=== PATIENT | male | born 1965 | race African-American/Black ===

== ENCOUNTER 2021-03-10 10:19 | Inpatient (IN) | payer MEDICAID, OTHER ==
[~2021-03-10] VITALS: Ht 167.6 cm; Wt 61.0 kg
[2021-03-10] MEDS ORDERED: CLINDAMYCIN 600MG IV 50 ML IV ONE (10:45)
[2021-03-10] MEDS ORDERED: SODIUM CHLORIDE 0.9% 500 ML IV ONE (10:45)
[2021-03-10] MEDS ORDERED: MORPHINE SULFATE 4 MG/ML SYR/VIAL IV ONE (10:45)
[2021-03-10] MEDS ORDERED: ONDANSETRON HCL 4 MG/2 ML VIAL IV ONE (10:45)
[2021-03-10 11:06] LABS: Hemoglobin 13.7 g/dL (13.5-17.5); Mean Corpuscular Volume 89.4 fL (80.0-100.0)
[2021-03-10 11:07] LABS: Hematocrit 38.8 % (41.0-53.0); Mean Corpuscular Hemoglobin 31.7 pg (28.0-32.0); Mean Corpuscular Hgb Conc. 35.4 g/dL (32.0-36.0); Red Blood Cells 4.34 10^6/uL (4.5-5.90); Red Cell Distribution Width 12.7 % (11.8-14.3); White Blood Cell 15.5 10^3/uL (4.4-10.8)
[2021-03-10 11:16] LABS: Basophils % (manual) 0 (0.0-2.0); Blast Cells 0; Eosinophils % (manual) 0 (0-7); Metamyelocytes % 0; Myelocytes % 0; Promyelocytes % 0; Reactive Lymphocytes 0
[2021-03-10 11:19] LABS: INR 0.96 (0.9-1.15); Partial Thromboplastin Time 25.1 sec (23.6-33.0)
[2021-03-10 11:20] LABS: Potassium 3.9 mmol/L (3.5-5.1)
[2021-03-10 11:26] LABS: Albumin 2.6 g/dL (3.4-5.0); Bilirubin, Total 0.5 mg/dL (0.2-1.0); Magnesium 2.1 mg/dL (1.6-2.6); Total Protein 7.8 g/dL (6.4-8.2)
[2021-03-10 11:44] LABS: Band Neutrophils % (manual) 8; Lymphocytes % (manual) 12 (10.0-50.0); Monocytes % (manual) 5 (0-12)
[2021-03-10] MEDS ORDERED: VANCOMYCIN PER PHARMACY 0 MG IV SCH (16:00)
[2021-03-10] MEDS ORDERED: NITROGLYCERIN 0.4 MG SL TAB SL PRN (16:00)
[2021-03-10] MEDS ORDERED: ACETAMINOPHEN 500 MG TAB PO PRN (16:00)
[2021-03-10] MEDS ORDERED: MORPHINE SULFATE INJECTION 2 MG/ML SYRG IV PRN (16:00)
[2021-03-10] MEDS ORDERED: DEXTROSE (50%) 50ML SYRG IV PRN (16:00)
[2021-03-10] MEDS: SODIUM CHLORIDE 0.9% 1,000 ML IV SCH (16:39)
[2021-03-10] MEDS: InsuLIN REG 1unit/0.01ml Soln (100units/ml) SC SCH (17:00)
[2021-03-10] MEDS: ACCU-CHEK COMFORT CURVE STRIP VI SCH (17:43)
[2021-03-10] MEDS: VANCOMYCIN 1GM/250ML 250 ML IV SCH (17:48)
[2021-03-11] MEDS: metroNIDAZOLE 500MG/100ML 100 ML IV SCH ×4 (02:01→21:34)
[2021-03-11] MEDS: ACCU-CHEK COMFORT CURVE STRIP VI SCH ×5 (03:33→22:05)
[2021-03-11] MEDS: InsuLIN REG 1unit/0.01ml Soln (100units/ml) SC SCH ×5 (03:34→21:33)
[2021-03-11 05:00] VITALS: BP 152/88
[2021-03-11 05:27] VITALS: BP 164/90
[2021-03-11 05:47] LABS: Albumin 2.2 g/dL (3.4-5.0); Calcium 8.1 mg/dL (8.5-10.1); INR 0.99 (0.9-1.15); Partial Thromboplastin Time 27.2 sec (23.6-33.0)
[2021-03-11 05:49] LABS: BUN/Creatinine Ratio 23.4
[2021-03-11 05:52] LABS: Bilirubin, Total 0.4 mg/dL (0.2-1.0); Total Protein 6.7 g/dL (6.4-8.2)
[2021-03-11] MEDS: VANCOMYCIN 1GM/250ML 250 ML IV SCH ×2 (06:17→17:30)
[2021-03-11] MEDS: SODIUM CHLORIDE 0.9% 1,000 ML IV SCH (06:18)
[2021-03-11 09:00] VITALS: BP 150/77
[2021-03-11] MEDS: cefTRIAXone 1GM/50ML D5W 50 ML IV SCH (09:01)
[2021-03-11] MEDS: LISINOPRIL 20 MG TAB PO SCH (12:29)
[2021-03-11] MEDS: MORPHINE SULFATE INJECTION 2 MG/ML SYRG IV PRN ×2 (12:30→20:38)
[2021-03-11 13:00] VITALS: BP 147/69
[2021-03-11 16:36] VITALS: BP 142/74
[2021-03-11] MEDS: INSULIN LANTUS (GLARGINE) 1 /0.01ml (100units/ml) SC SCH (21:33)
[2021-03-11 22:00] VITALS: BP 145/70
[2021-03-11] MEDS: CARVEDILOL 3.125 MG TAB PO SCH (22:05)
[2021-03-11] MEDS: ATORVASTATIN 20 MG TAB PO SCH (22:05)
[2021-03-11] MEDS ORDERED: ATOR40TA52 PO (22:25)
[2021-03-11] MEDS ORDERED: METF-370 PO (22:25)
[2021-03-11] MEDS ORDERED: ISOS1TAB28 PO (22:25)
[2021-03-12] MEDS: SODIUM CHLORIDE 0.9% 1,000 ML IV SCH ×3 (03:42→21:30)
[2021-03-12] MEDS: metroNIDAZOLE 500MG/100ML 100 ML IV SCH ×2 (05:03→14:00)
[2021-03-12 05:06] VITALS: BP 122/72
[2021-03-12 05:54] LABS: Eosinophils # (auto) 0 10 ^3/uL (0-0.8); Lymphocytes # (auto) 0.9 10 ^3/uL (0.4-5.4)
[2021-03-12 05:57] LABS: Basophils # (auto) 0.1 10 ^3/uL (0-0.2); Basophils % (auto) 0.3 % (0.0-2.0); Hematocrit 36.6 % (41.0-53.0); Hemoglobin 12.8 g/dL (13.5-17.5); Lymphocytes % (auto) 5.8 % (10.0-50.0); Mean Corpuscular Hgb Conc. 34.9 g/dL (32.0-36.0); Mean Corpuscular Volume 88.9 fL (80.0-100.0); Monocytes # (auto) 1.2 10 ^3/uL (0-1.3); Monocytes % (auto) 7.4 % (0.0-12.0); Neutrophils % (auto) 86.5 % (37.0-80.0); Red Blood Cells 4.12 10^6/uL (4.5-5.90); White Blood Cell 16.2 10^3/uL (4.4-10.8)
[2021-03-12 06:06] LABS: Potassium 3.6 mmol/L (3.5-5.1)
[2021-03-12 06:15] LABS: Albumin 2.1 g/dL (3.4-5.0); BUN/Creatinine Ratio 17.3; Bilirubin, Total 0.4 mg/dL (0.2-1.0); Calcium 8.5 mg/dL (8.5-10.1); Total Protein 6.6 g/dL (6.4-8.2)
[2021-03-12] MEDS: VANCOMYCIN 1GM/250ML 250 ML IV SCH (06:27)
[2021-03-12] MEDS: ACCU-CHEK COMFORT CURVE STRIP VI SCH ×4 (06:34→21:43)
[2021-03-12] MEDS: InsuLIN REG 1unit/0.01ml Soln (100units/ml) SC SCH ×4 (06:34→21:44)
[2021-03-12 08:57] VITALS: BP 148/85
[2021-03-12] MEDS: cefTRIAXone 1GM/50ML D5W 50 ML IV SCH (09:00)
[2021-03-12] MEDS: CARVEDILOL 3.125 MG TAB PO SCH ×2 (10:27→22:09)
[2021-03-12] MEDS: ASPirin 81 mg TAB PO SCH (10:27)
[2021-03-12] MEDS: LISINOPRIL 20 MG TAB PO SCH (10:27)
[2021-03-12 13:00] VITALS: BP 145/83
[2021-03-12] MEDS ORDERED: VANCOMYCIN 1GM/250ML 250 ML IV SCH (16:00)
[2021-03-12] MEDS: HYDROcodone-ACET 5/325MG TAB PO PRN (16:43)
[2021-03-12 17:00] VITALS: BP 145/47
[2021-03-12] MEDS ORDERED: CLINDAMYCIN 600MG IV 50 ML IV ONE ×2 (17:00→18:00)
[2021-03-12] MEDS: Glucerna Carbsteady SHAKE Vanilla 8oz PO SCH (18:09)
[2021-03-12] MEDS: MEROPENEM 1GM IVPB 100 ML IV SCH (20:15)
[2021-03-12] MEDS: INSULIN LANTUS (GLARGINE) 1 /0.01ml (100units/ml) SC SCH (21:43)
[2021-03-12 22:00] VITALS: BP 157/84
[2021-03-12] MEDS: ATORVASTATIN 20 MG TAB PO SCH (22:09)
[2021-03-12] MEDS: ONDANSETRON HCL 4 MG/2 ML VIAL IV PRN (23:35)
[2021-03-12] MEDS: hydrALAZINE HCL 20 MG/ML VL IV PRN (23:41)
[2021-03-13] MEDS: CLINDAMYCIN 600MG IV 50 ML IV SCH ×3 (00:09→16:00)
[2021-03-13] MEDS: HYDROcodone-ACET 5/325MG TAB PO PRN (01:26)
[2021-03-13] MEDS: MEROPENEM 1GM IVPB 100 ML IV SCH ×3 (04:32→20:01)
[2021-03-13 05:00] VITALS: BP 151/78
[2021-03-13 06:10] LABS: Anion Gap 7 (5-15); Calcium 7.8 mg/dL (8.5-10.1); Carbon Dioxide 28 mmol/L (21-32); Chloride 103 mmol/L (98-107); Glucose 122 mg/dL (74-106); Potassium 3.3 mmol/L (3.5-5.1); Sodium 138 mmol/L (136-145)
[2021-03-13 06:16] LABS: BUN/Creatinine Ratio 18.2; Blood Urea Nitrogen 12 mg/dL (7-18); GFR African American 161 mL/min; GFR Non-African American 133 mL/min
[2021-03-13 06:24] LABS: Basophils # (auto) 0 10 ^3/uL (0-0.2); Basophils % (auto) 0.2 % (0.0-2.0); Eosinophils # (auto) 0 10 ^3/uL (0-0.8); Hematocrit 36.9 % (41.0-53.0); Hemoglobin 13.3 g/dL (13.5-17.5); Lymphocytes # (auto) 1.1 10 ^3/uL (0.4-5.4); Lymphocytes % (auto) 4.8 % (10.0-50.0); Mean Corpuscular Hemoglobin 31.7 pg (28.0-32.0); Mean Corpuscular Hgb Conc. 36.1 g/dL (32.0-36.0); Mean Corpuscular Volume 87.9 fL (80.0-100.0); Monocytes # (auto) 1.4 10 ^3/uL (0-1.3); Monocytes % (auto) 6.5 % (0.0-12.0); Neutrophils # (auto) 19.5 10 ^3/uL (1.6-8.6); Neutrophils % (auto) 88.5 % (37.0-80.0); Red Blood Cells 4.19 10^6/uL (4.5-5.90); Red Cell Distribution Width 12.2 % (11.8-14.3)
[2021-03-13] MEDS: ACCU-CHEK COMFORT CURVE STRIP VI SCH ×4 (06:35→21:59)
[2021-03-13] MEDS: InsuLIN REG 1unit/0.01ml Soln (100units/ml) SC SCH ×4 (06:35→21:58)
[2021-03-13] MEDS: Glucerna Carbsteady SHAKE Vanilla 8oz PO SCH ×3 (08:00→18:08)
[2021-03-13 09:00] VITALS: BP 148/77
[2021-03-13] MEDS: ASPirin 81 mg TAB PO SCH (10:27)
[2021-03-13] MEDS: LISINOPRIL 20 MG TAB PO SCH (10:28)
[2021-03-13] MEDS: CARVEDILOL 3.125 MG TAB PO SCH ×2 (10:28→21:47)
[2021-03-13] MEDS: SODIUM CHLORIDE 0.9% 1,000 ML IV SCH (10:40)
[2021-03-13 12:45] VITALS: BP 147/77
[2021-03-13] MEDS ORDERED: POTASSIUM EFFERVESENT TAB 25 MEQ PO ONE (13:30)
[2021-03-13 17:16] VITALS: BP 153/80
[2021-03-13] MEDS: ATORVASTATIN 20 MG TAB PO SCH (21:47)
[2021-03-13] MEDS: INSULIN LANTUS (GLARGINE) 1 /0.01ml (100units/ml) SC SCH (21:58)
[2021-03-13] MEDS: MORPHINE SULFATE INJECTION 2 MG/ML SYRG IV PRN (21:59)
[2021-03-13 22:00] VITALS: BP 160/79
[2021-03-14] MEDS: CLINDAMYCIN 600MG IV 50 ML IV SCH ×4 (00:28→23:42)
[2021-03-14] MEDS: MEROPENEM 1GM IVPB 100 ML IV SCH ×3 (03:35→20:00)
[2021-03-14 05:00] VITALS: BP 149/84
[2021-03-14] MEDS: MORPHINE SULFATE INJECTION 2 MG/ML SYRG IV PRN ×3 (05:37→14:23)
[2021-03-14] MEDS: ONDANSETRON HCL 4 MG/2 ML VIAL IV PRN (05:37)
[2021-03-14] MEDS: SODIUM CHLORIDE 0.9% 1,000 ML IV SCH ×2 (05:37→14:20)
[2021-03-14] MEDS: InsuLIN REG 1unit/0.01ml Soln (100units/ml) SC SCH ×4 (05:46→22:07)
[2021-03-14] MEDS: ACCU-CHEK COMFORT CURVE STRIP VI SCH ×4 (05:46→22:06)
[2021-03-14 05:59] LABS: Hemoglobin 12.9 g/dL (13.5-17.5)
[2021-03-14 06:01] LABS: Basophils # (auto) 0.1 10 ^3/uL (0-0.2); Basophils % (auto) 0.4 % (0.0-2.0); Eosinophils # (auto) 0 10 ^3/uL (0-0.8); Eosinophils % (auto) 0.2 % (0.0-7.0); Hematocrit 37.2 % (41.0-53.0); Lymphocytes # (auto) 1.1 10 ^3/uL (0.4-5.4); Lymphocytes % (auto) 5.4 % (10.0-50.0); Mean Corpuscular Hemoglobin 30.8 pg (28.0-32.0); Mean Corpuscular Hgb Conc. 34.5 g/dL (32.0-36.0); Mean Corpuscular Volume 89.2 fL (80.0-100.0); Monocytes # (auto) 1.3 10 ^3/uL (0-1.3); Monocytes % (auto) 6.6 % (0.0-12.0); Neutrophils # (auto) 17.1 10 ^3/uL (1.6-8.6); Neutrophils % (auto) 87.4 % (37.0-80.0); Red Blood Cells 4.17 10^6/uL (4.5-5.90); Red Cell Distribution Width 12.6 % (11.8-14.3); White Blood Cell 19.6 10^3/uL (4.4-10.8)
[2021-03-14 06:25] LABS: Potassium 3.2 mmol/L (3.5-5.1)
[2021-03-14 06:34] LABS: Albumin 1.9 g/dL (3.4-5.0); BUN/Creatinine Ratio 17.7; Bilirubin, Total 0.2 mg/dL (0.2-1.0); Calcium 8.2 mg/dL (8.5-10.1); Total Protein 6.6 g/dL (6.4-8.2)
[2021-03-14] MEDS: Glucerna Carbsteady SHAKE Vanilla 8oz PO SCH ×3 (08:00→18:22)
[2021-03-14] MEDS ORDERED: ADENOSINE 50 MG in GIVE UN-DILUTED 0 ML IV ONE (08:15)
[2021-03-14 08:41] VITALS: BP 156/81
[2021-03-14 09:07] VITALS: BP 149/80
[2021-03-14] MEDS: ASPirin 81 mg TAB PO SCH (10:11)
[2021-03-14] MEDS: LISINOPRIL 20 MG TAB PO SCH (10:12)
[2021-03-14] MEDS: CARVEDILOL 3.125 MG TAB PO SCH ×2 (10:12→22:08)
[2021-03-14 13:00] VITALS: BP 162/90
[2021-03-14] MEDS ORDERED: POTASSIUM CHL 20 Meq TABLET PO ONE (13:00)
[2021-03-14] MEDS ORDERED: CHOLECALCIFEROL (VITD3) 2,000 UNIT CAP/TAB PO ONE (13:00)
[2021-03-14] MEDS: hydrALAZINE HCL 20 MG/ML VL IV PRN (15:21)
[2021-03-14 17:00] VITALS: BP 147/75
[2021-03-14] MEDS: HYDROmorphone HCL 2 MG/ML VL IV PRN ×2 (18:23→22:54)
[2021-03-14 22:00] VITALS: BP 158/71
[2021-03-14] MEDS: ATORVASTATIN 20 MG TAB PO SCH (22:06)
[2021-03-14] MEDS: INSULIN LANTUS (GLARGINE) 1 /0.01ml (100units/ml) SC SCH (22:07)
[2021-03-15] MEDS: MEROPENEM 1GM IVPB 100 ML IV SCH ×3 (03:45→19:19)
[2021-03-15] MEDS: HYDROmorphone HCL 2 MG/ML VL IV PRN ×6 (03:45→22:31)
[2021-03-15 05:00] VITALS: BP 126/69
[2021-03-15 05:38] LABS: Basophils # (auto) 0 10 ^3/uL (0-0.2); Basophils % (auto) 0.1 % (0.0-2.0); Eosinophils # (auto) 0 10 ^3/uL (0-0.8); Lymphocytes # (auto) 0.9 10 ^3/uL (0.4-5.4); Monocytes # (auto) 1.3 10 ^3/uL (0-1.3); Neutrophils % (auto) 85.7 % (37.0-80.0)
[2021-03-15] MEDS: SODIUM CHLORIDE 0.9% 1,000 ML IV SCH ×2 (05:40→11:59)
[2021-03-15 05:45] LABS: Eosinophils % (auto) 0.2 % (0.0-7.0); Hematocrit 33.2 % (41.0-53.0); Hemoglobin 11.7 g/dL (13.5-17.5); Lymphocytes % (auto) 5.9 % (10.0-50.0); Mean Corpuscular Hemoglobin 31.2 pg (28.0-32.0); Mean Corpuscular Hgb Conc. 35.1 g/dL (32.0-36.0); Mean Corpuscular Volume 88.8 fL (80.0-100.0); Monocytes % (auto) 8.1 % (0.0-12.0); Neutrophils # (auto) 13.3 10 ^3/uL (1.6-8.6); Red Blood Cells 3.74 10^6/uL (4.5-5.90); Red Cell Distribution Width 12.5 % (11.8-14.3); White Blood Cell 15.6 10^3/uL (4.4-10.8)
[2021-03-15] MEDS: ACCU-CHEK COMFORT CURVE STRIP VI SCH ×4 (05:46→21:58)
[2021-03-15] MEDS: InsuLIN REG 1unit/0.01ml Soln (100units/ml) SC SCH ×4 (05:46→21:58)
[2021-03-15 06:05] LABS: Potassium 3.8 mmol/L (3.5-5.1)
[2021-03-15] MEDS: Glucerna Carbsteady SHAKE Vanilla 8oz PO SCH ×3 (08:08→18:00)
[2021-03-15] MEDS: CLINDAMYCIN 600MG IV 50 ML IV SCH ×3 (08:08→23:44)
[2021-03-15 09:00] VITALS: BP 145/76
[2021-03-15] MEDS: ASPirin 81 mg TAB PO SCH (09:41)
[2021-03-15] MEDS: LISINOPRIL 20 MG TAB PO SCH (09:42)
[2021-03-15] MEDS: CHOLECALCIFEROL (VITD3) 2,000 UNIT CAP/TAB PO SCH (09:42)
[2021-03-15] MEDS: CARVEDILOL 3.125 MG TAB PO SCH ×2 (09:42→21:56)
[2021-03-15 13:00] VITALS: BP 143/75
[2021-03-15 17:00] VITALS: BP 143/70
[2021-03-15] MEDS: ATORVASTATIN 20 MG TAB PO SCH (21:57)
[2021-03-15] MEDS: INSULIN LANTUS (GLARGINE) 1 /0.01ml (100units/ml) SC SCH (21:58)
[2021-03-15 22:00] VITALS: BP 160/80
[2021-03-16] MEDS: ONDANSETRON HCL 4 MG/2 ML VIAL IV PRN (01:47)
[2021-03-16] MEDS: HYDROmorphone HCL 2 MG/ML VL IV PRN ×5 (01:47→21:46)
[2021-03-16] MEDS: HYDROcodone-ACET 5/325MG TAB PO PRN (02:50)
[2021-03-16] MEDS: MEROPENEM 1GM IVPB 100 ML IV SCH ×3 (04:19→21:01)
[2021-03-16 05:01] VITALS: BP 114/63
[2021-03-16] MEDS: InsuLIN REG 1unit/0.01ml Soln (100units/ml) SC SCH ×4 (06:05→21:31)
[2021-03-16] MEDS: ACCU-CHEK COMFORT CURVE STRIP VI SCH ×4 (06:05→21:45)
[2021-03-16 07:05] LABS: Basophils # (auto) 0.1 10 ^3/uL (0-0.2); Hemoglobin 13.1 g/dL (13.5-17.5); Neutrophils # (auto) 16.4 10 ^3/uL (1.6-8.6); Red Cell Distribution Width 12.6 % (11.8-14.3)
[2021-03-16 07:07] LABS: Basophils % (auto) 0.6 % (0.0-2.0); Eosinophils # (auto) 0 10 ^3/uL (0-0.8); Eosinophils % (auto) 0.2 % (0.0-7.0); Hematocrit 38.4 % (41.0-53.0); Lymphocytes # (auto) 1.4 10 ^3/uL (0.4-5.4); Lymphocytes % (auto) 7.3 % (10.0-50.0); Mean Corpuscular Hemoglobin 30.4 pg (28.0-32.0); Mean Corpuscular Volume 89.2 fL (80.0-100.0); Monocytes # (auto) 1.4 10 ^3/uL (0-1.3); Monocytes % (auto) 7.4 % (0.0-12.0); Neutrophils % (auto) 84.5 % (37.0-80.0); Red Blood Cells 4.31 10^6/uL (4.5-5.90); White Blood Cell 19.5 10^3/uL (4.4-10.8)
[2021-03-16 07:20] LABS: INR 1.01 (0.9-1.15); Partial Thromboplastin Time 29.1 sec (23.6-33.0)
[2021-03-16 08:00] VITALS: BP 150/88
[2021-03-16] MEDS: CLINDAMYCIN 600MG IV 50 ML IV SCH ×2 (08:00→16:33)
[2021-03-16] MEDS: Glucerna Carbsteady SHAKE Vanilla 8oz PO SCH ×3 (08:00→18:39)
[2021-03-16] MEDS: CHOLECALCIFEROL (VITD3) 2,000 UNIT CAP/TAB PO SCH (09:39)
[2021-03-16] MEDS: ASPirin 81 mg TAB PO SCH (09:39)
[2021-03-16] MEDS: LIDOCAINE 1% HCL (LOCAL ANESTH.) INJ 20ML MDV ONE ×2 (09:42→11:34)
[2021-03-16] MEDS: BUPIVACAINE 0.5% P/F INJ 10 ML VIAL ONE ×2 (09:43→11:34)
[2021-03-16] MEDS ORDERED: DAKINS HALF STR 0.25% (NaHypochlorite) 473 ML TOPICAL SOL TOP ONE (09:45)
[2021-03-16] MEDS: LISINOPRIL 20 MG TAB PO SCH (10:00)
[2021-03-16] MEDS: CARVEDILOL 3.125 MG TAB PO SCH ×2 (10:00→21:45)
[2021-03-16] MEDS ORDERED: CLINDAMYCIN 600MG IV 50 ML IV ONE (11:09)
[2021-03-16] MEDS ORDERED: fentaNYL CITRATE 100 MCG/2 ML VL ONE (11:22)
[2021-03-16] MEDS ORDERED: MIDAZOLAM HCL 2MG/2ML 2ml VIAL (1mg/ml) ONE (11:22)
[2021-03-16] MEDS ORDERED: ONDANSETRON HCL 4 MG/2 ML VIAL ONE (12:06)
[2021-03-16] MEDS ORDERED: PROPOFOL 10 MG/ML 20 ML IV ONE (12:07)
[2021-03-16] MEDS ORDERED: ONDANSETRON HCL 4 MG/2 ML VIAL IV PRN (12:30)
[2021-03-16] MEDS ORDERED: HYDROmorphone HCL 2 MG/ML VL IV PRN (12:30)
[2021-03-16 16:00] VITALS: BP 168/81
[2021-03-16] MEDS: hydrALAZINE HCL 20 MG/ML VL IV PRN (16:09)
[2021-03-16] MEDS: SODIUM CHLORIDE 0.9% 1,000 ML IV SCH (16:33)
[2021-03-16] MEDS: INSULIN LANTUS (GLARGINE) 1 /0.01ml (100units/ml) SC SCH (21:32)
[2021-03-16] MEDS: ATORVASTATIN 20 MG TAB PO SCH (21:45)
[2021-03-16 22:00] VITALS: BP 141/75
[2021-03-17] MEDS: CLINDAMYCIN 600MG IV 50 ML IV SCH ×3 (00:21→10:34)
[2021-03-17] MEDS: HYDROcodone-ACET 5/325MG TAB PO PRN ×3 (00:26→15:40)
[2021-03-17] MEDS: MEROPENEM 1GM IVPB 100 ML IV SCH ×3 (03:45→19:56)
[2021-03-17 05:00] VITALS: BP 128/67
[2021-03-17] MEDS: InsuLIN REG 1unit/0.01ml Soln (100units/ml) SC SCH ×4 (06:34→22:01)
[2021-03-17] MEDS: ACCU-CHEK COMFORT CURVE STRIP VI SCH ×4 (06:35→22:01)
[2021-03-17 07:17] LABS: Hematocrit 37.2 % (41.0-53.0); Hemoglobin 12.6 g/dL (13.5-17.5); Mean Corpuscular Hemoglobin 30.4 pg (28.0-32.0); Mean Corpuscular Volume 89.3 fL (80.0-100.0); Red Blood Cells 4.16 10^6/uL (4.5-5.90); Red Cell Distribution Width 12.7 % (11.8-14.3); White Blood Cell 18.6 10^3/uL (4.4-10.8)
[2021-03-17 07:25] LABS: Basophils % (manual) 0 (0.0-2.0); Blast Cells 0; Eosinophils % (manual) 0 (0-7); Metamyelocytes % 0; Myelocytes % 0; Promyelocytes % 0; Reactive Lymphocytes 0
[2021-03-17 07:29] LABS: Calcium 8.2 mg/dL (8.5-10.1); Potassium 4.6 mmol/L (3.5-5.1)
[2021-03-17 07:32] LABS: BUN/Creatinine Ratio 14.9
[2021-03-17] MEDS: SODIUM CHLORIDE 0.9% 1,000 ML IV SCH ×2 (07:40→10:45)
[2021-03-17] MEDS: Glucerna Carbsteady SHAKE Vanilla 8oz PO SCH ×3 (08:00→17:43)
[2021-03-17 08:14] LABS: Band Neutrophils % (manual) 2; Lymphocytes % (manual) 7 (10.0-50.0); Monocytes % (manual) 5 (0-12)
[2021-03-17 09:00] VITALS: BP 153/82
[2021-03-17] MEDS: ASPirin 81 mg TAB PO SCH (10:39)
[2021-03-17] MEDS: CARVEDILOL 3.125 MG TAB PO SCH ×2 (10:41→22:08)
[2021-03-17] MEDS: LISINOPRIL 20 MG TAB PO SCH (10:42)
[2021-03-17] MEDS: CHOLECALCIFEROL (VITD3) 2,000 UNIT CAP/TAB PO SCH (10:42)
[2021-03-17 13:00] VITALS: BP 105/56
[2021-03-17] MEDS: hydrALAZINE HCL 20 MG/ML VL IV PRN (16:46)
[2021-03-17 17:08] VITALS: BP 169/87
[2021-03-17] MEDS: HYDROmorphone HCL 2 MG/ML VL IV PRN (20:09)
[2021-03-17 22:00] VITALS: BP 128/68
[2021-03-17] MEDS: INSULIN LANTUS (GLARGINE) 1 /0.01ml (100units/ml) SC SCH (22:01)
[2021-03-17] MEDS: ATORVASTATIN 20 MG TAB PO SCH (22:08)
[2021-03-18] MEDS: CLINDAMYCIN 600MG IV 50 ML IV SCH ×2 (00:05→07:52)
[2021-03-18] MEDS: HYDROmorphone HCL 2 MG/ML VL IV PRN ×4 (04:16→20:06)
[2021-03-18] MEDS: MEROPENEM 1GM IVPB 100 ML IV SCH (04:17)
[2021-03-18 05:00] VITALS: BP 126/67
[2021-03-18 06:16] LABS: Basophils # (auto) 0.1 10 ^3/uL (0-0.2); Eosinophils # (auto) 0 10 ^3/uL (0-0.8); Eosinophils % (auto) 0.2 % (0.0-7.0); Lymphocytes # (auto) 1.3 10 ^3/uL (0.4-5.4); Neutrophils # (auto) 14.8 10 ^3/uL (1.6-8.6)
[2021-03-18 06:18] LABS: Basophils % (auto) 0.6 % (0.0-2.0); Hemoglobin 12.2 g/dL (13.5-17.5); Lymphocytes % (auto) 7.3 % (10.0-50.0); Mean Corpuscular Hemoglobin 30.5 pg (28.0-32.0); Mean Corpuscular Hgb Conc. 33.9 g/dL (32.0-36.0); Monocytes # (auto) 1.5 10 ^3/uL (0-1.3); Monocytes % (auto) 8.2 % (0.0-12.0); Neutrophils % (auto) 83.7 % (37.0-80.0); Red Cell Distribution Width 12.9 % (11.8-14.3); White Blood Cell 17.7 10^3/uL (4.4-10.8)
[2021-03-18] MEDS: ACCU-CHEK COMFORT CURVE STRIP VI SCH ×4 (06:29→22:31)
[2021-03-18] MEDS: InsuLIN REG 1unit/0.01ml Soln (100units/ml) SC SCH ×4 (06:32→23:28)
[2021-03-18] MEDS: SODIUM CHLORIDE 0.9% 1,000 ML IV SCH (06:34)
[2021-03-18 09:00] VITALS: BP 124/63
[2021-03-18] MEDS: Glucerna Carbsteady SHAKE Vanilla 8oz PO SCH ×3 (09:52→18:33)
[2021-03-18] MEDS: ASPirin 81 mg TAB PO SCH (09:52)
[2021-03-18] MEDS: CHOLECALCIFEROL (VITD3) 2,000 UNIT CAP/TAB PO SCH (09:53)
[2021-03-18] MEDS: CARVEDILOL 3.125 MG TAB PO SCH ×2 (09:53→22:32)
[2021-03-18] MEDS: LISINOPRIL 20 MG TAB PO SCH (09:54)
[2021-03-18] MEDS: DAKINS QUARTER STR 0.125% (NaHypochlorite) 473 ML TOPICAL SOL TOP SCH ×2 (09:54→22:31)
[2021-03-18 13:15] VITALS: BP 132/70
[2021-03-18 17:00] VITALS: BP 150/79
[2021-03-18] MEDS: AMPICILLIN & SULBACTAM SODIUM 3 GM in SODIUM CHL 0.9% 100 ML IV SCH ×2 (17:12→23:59)
[2021-03-18 22:00] VITALS: BP 135/59
[2021-03-18] MEDS: ATORVASTATIN 20 MG TAB PO SCH (22:31)
[2021-03-18] MEDS: INSULIN LANTUS (GLARGINE) 1 /0.01ml (100units/ml) SC SCH (22:33)
[2021-03-19] MEDS: SODIUM CHLORIDE 0.9% 1,000 ML IV SCH ×2 (02:32→21:46)
[2021-03-19] MEDS: HYDROmorphone HCL 2 MG/ML VL IV PRN ×4 (02:37→20:31)
[2021-03-19 05:00] VITALS: BP 125/65
[2021-03-19] MEDS: AMPICILLIN & SULBACTAM SODIUM 3 GM in SODIUM CHL 0.9% 100 ML IV SCH ×4 (06:30→23:49)
[2021-03-19] MEDS: ACCU-CHEK COMFORT CURVE STRIP VI SCH ×4 (06:30→21:40)
[2021-03-19] MEDS: InsuLIN REG 1unit/0.01ml Soln (100units/ml) SC SCH ×4 (06:42→21:48)
[2021-03-19 08:00] VITALS: BP 140/81
[2021-03-19] MEDS: Glucerna Carbsteady SHAKE Vanilla 8oz PO SCH ×3 (08:07→18:35)
[2021-03-19] MEDS: DAKINS QUARTER STR 0.125% (NaHypochlorite) 473 ML TOPICAL SOL TOP SCH ×2 (08:08→21:41)
[2021-03-19 08:36] LABS: Basophils # (auto) 0.1 10 ^3/uL (0-0.2); Eosinophils # (auto) 0.1 10 ^3/uL (0-0.8); Hemoglobin 11.9 g/dL (13.5-17.5); Nucleated Red Blood Cells % 0.1 %
[2021-03-19 08:39] LABS: Basophils % (auto) 0.5 % (0.0-2.0); Eosinophils % (auto) 0.5 % (0.0-7.0); Hematocrit 34.6 % (41.0-53.0); Lymphocytes # (auto) 1.3 10 ^3/uL (0.4-5.4); Lymphocytes % (auto) 8.6 % (10.0-50.0); Mean Corpuscular Hemoglobin 30.9 pg (28.0-32.0); Mean Corpuscular Hgb Conc. 34.3 g/dL (32.0-36.0); Mean Corpuscular Volume 90.1 fL (80.0-100.0); Monocytes # (auto) 1.4 10 ^3/uL (0-1.3); Monocytes % (auto) 8.9 % (0.0-12.0); Neutrophils # (auto) 12.5 10 ^3/uL (1.6-8.6); Neutrophils % (auto) 81.5 % (37.0-80.0); Red Blood Cells 3.85 10^6/uL (4.5-5.90); Red Cell Distribution Width 12.7 % (11.8-14.3); White Blood Cell 15.3 10^3/uL (4.4-10.8)
[2021-03-19 08:48] LABS: BUN/Creatinine Ratio 19.4; Calcium 8.2 mg/dL (8.5-10.1); Potassium 4.5 mmol/L (3.5-5.1)
[2021-03-19 09:00] VITALS: BP 140/81
[2021-03-19] MEDS: ASPirin 81 mg TAB PO SCH (09:13)
[2021-03-19] MEDS: CHOLECALCIFEROL (VITD3) 2,000 UNIT CAP/TAB PO SCH (09:13)
[2021-03-19] MEDS: CARVEDILOL 3.125 MG TAB PO SCH ×2 (09:13→21:40)
[2021-03-19] MEDS: LISINOPRIL 20 MG TAB PO SCH (09:13)
[2021-03-19 13:16] VITALS: BP 135/79
[2021-03-19 17:07] VITALS: BP 125/59
[2021-03-19] MEDS: ATORVASTATIN 20 MG TAB PO SCH (21:40)
[2021-03-19] MEDS: HYDROcodone-ACET 5/325MG TAB PO PRN (21:40)
[2021-03-19] MEDS: INSULIN LANTUS (GLARGINE) 1 /0.01ml (100units/ml) SC SCH (21:48)
[2021-03-19 22:17] VITALS: BP 125/67
[2021-03-20] MEDS: HYDROmorphone HCL 2 MG/ML VL IV PRN ×5 (01:48→21:25)
[2021-03-20 05:00] VITALS: BP 127/84
[2021-03-20 05:08] LABS: Eosinophils # (auto) 0.1 10 ^3/uL (0-0.8); Eosinophils % (auto) 0.6 % (0.0-7.0); Mean Corpuscular Hemoglobin 30.9 pg (28.0-32.0)
[2021-03-20 05:10] LABS: Basophils # (auto) 0 10 ^3/uL (0-0.2); Basophils % (auto) 0.3 % (0.0-2.0); Hematocrit 32.7 % (41.0-53.0); Hemoglobin 11.3 g/dL (13.5-17.5); Lymphocytes # (auto) 1.3 10 ^3/uL (0.4-5.4); Lymphocytes % (auto) 10.8 % (10.0-50.0); Mean Corpuscular Hgb Conc. 34.4 g/dL (32.0-36.0); Mean Corpuscular Volume 89.7 fL (80.0-100.0); Monocytes % (auto) 8.6 % (0.0-12.0); Neutrophils # (auto) 9.5 10 ^3/uL (1.6-8.6); Neutrophils % (auto) 79.7 % (37.0-80.0); Red Blood Cells 3.65 10^6/uL (4.5-5.90); Red Cell Distribution Width 12.8 % (11.8-14.3); White Blood Cell 11.9 10^3/uL (4.4-10.8)
[2021-03-20 05:29] LABS: Potassium 4.2 mmol/L (3.5-5.1)
[2021-03-20 05:30] LABS: BUN/Creatinine Ratio 19.4; Calcium 8.3 mg/dL (8.5-10.1)
[2021-03-20] MEDS: AMPICILLIN & SULBACTAM SODIUM 3 GM in SODIUM CHL 0.9% 100 ML IV SCH ×3 (05:40→18:26)
[2021-03-20] MEDS: ACCU-CHEK COMFORT CURVE STRIP VI SCH ×4 (06:24→22:22)
[2021-03-20] MEDS: InsuLIN REG 1unit/0.01ml Soln (100units/ml) SC SCH ×4 (06:25→22:00)
[2021-03-20] MEDS: Glucerna Carbsteady SHAKE Vanilla 8oz PO SCH ×3 (08:49→18:26)
[2021-03-20 09:00] VITALS: BP 120/61
[2021-03-20] MEDS: ASPirin 81 mg TAB PO SCH (09:34)
[2021-03-20] MEDS: CHOLECALCIFEROL (VITD3) 2,000 UNIT CAP/TAB PO SCH (09:35)
[2021-03-20] MEDS: CARVEDILOL 3.125 MG TAB PO SCH ×2 (09:35→21:24)
[2021-03-20] MEDS: LISINOPRIL 20 MG TAB PO SCH (09:35)
[2021-03-20] MEDS: DAKINS QUARTER STR 0.125% (NaHypochlorite) 473 ML TOPICAL SOL TOP SCH ×2 (10:27→21:25)
[2021-03-20 13:00] VITALS: BP 151/79
[2021-03-20 16:25] VITALS: BP 143/66
[2021-03-20] MEDS: SODIUM CHLORIDE 0.9% 1,000 ML IV SCH (18:26)
[2021-03-20] MEDS: ATORVASTATIN 20 MG TAB PO SCH (21:24)
[2021-03-20 22:00] VITALS: BP 162/70
[2021-03-20] MEDS: INSULIN LANTUS (GLARGINE) 1 /0.01ml (100units/ml) SC SCH (22:00)
[2021-03-20] MEDS: HYDROcodone-ACET 5/325MG TAB PO PRN (22:23)
[2021-03-21] MEDS: AMPICILLIN & SULBACTAM SODIUM 3 GM in SODIUM CHL 0.9% 100 ML IV SCH ×3 (00:44→06:43)
[2021-03-21] MEDS: HYDROmorphone HCL 2 MG/ML VL IV PRN ×4 (02:57→23:10)
[2021-03-21 05:00] VITALS: BP 122/68
[2021-03-21 06:31] LABS: Basophils # (auto) 0.1 10 ^3/uL (0-0.2); Eosinophils # (auto) 0.1 10 ^3/uL (0-0.8); Eosinophils % (auto) 0.6 % (0.0-7.0); Neutrophils # (auto) 10.4 10 ^3/uL (1.6-8.6)
[2021-03-21 06:33] LABS: Basophils % (auto) 0.6 % (0.0-2.0); Hematocrit 31.2 % (41.0-53.0); Lymphocytes % (auto) 8.1 % (10.0-50.0); Mean Corpuscular Hemoglobin 31.8 pg (28.0-32.0); Mean Corpuscular Hgb Conc. 35.4 g/dL (32.0-36.0); Mean Corpuscular Volume 89.8 fL (80.0-100.0); Monocytes % (auto) 7.8 % (0.0-12.0); Neutrophils % (auto) 82.9 % (37.0-80.0); Red Blood Cells 3.47 10^6/uL (4.5-5.90); Red Cell Distribution Width 12.3 % (11.8-14.3); White Blood Cell 12.5 10^3/uL (4.4-10.8)
[2021-03-21 06:50] LABS: BUN/Creatinine Ratio 22.2; Calcium 8.4 mg/dL (8.5-10.1); Potassium 4.7 mmol/L (3.5-5.1)
[2021-03-21] MEDS: ACCU-CHEK COMFORT CURVE STRIP VI SCH ×4 (07:10→22:59)
[2021-03-21] MEDS: InsuLIN REG 1unit/0.01ml Soln (100units/ml) SC SCH ×4 (07:34→23:26)
[2021-03-21] MEDS: Glucerna Carbsteady SHAKE Vanilla 8oz PO SCH ×3 (08:20→18:10)
[2021-03-21 09:00] VITALS: BP 120/62
[2021-03-21] MEDS: CHOLECALCIFEROL (VITD3) 2,000 UNIT CAP/TAB PO SCH (10:00)
[2021-03-21] MEDS: LISINOPRIL 20 MG TAB PO SCH (10:03)
[2021-03-21] MEDS: CARVEDILOL 3.125 MG TAB PO SCH ×2 (10:03→22:58)
[2021-03-21] MEDS: DAKINS QUARTER STR 0.125% (NaHypochlorite) 473 ML TOPICAL SOL TOP SCH ×2 (10:03→22:59)
[2021-03-21] MEDS: ASPirin 81 mg TAB PO SCH (10:03)
[2021-03-21] MEDS ORDERED: cefTRIAXone 1GM/50ML D5W 50 ML IV ONE (12:30)
[2021-03-21] MEDS: HYDROcodone-ACET 5/325MG TAB PO PRN ×2 (13:25→21:24)
[2021-03-21] MEDS: metroNIDAZOLE 500 MG TAB PO SCH ×2 (14:00→22:59)
[2021-03-21] MEDS: SODIUM CHLORIDE 0.9% 1,000 ML IV SCH (14:45)
[2021-03-21] MEDS ORDERED: IOHEXOL 350 MG/ML 100ML IJ ONE ×2 (15:32→16:05)
[2021-03-21] MEDS ORDERED: LIDOCAINE 2%HCL (LOCAL ANESTH.) INJ 20ML MDV ONE (15:32)
[2021-03-21] MEDS ORDERED: fentaNYL CITRATE 100 MCG/2 ML VL ONE (15:36)
[2021-03-21] MEDS ORDERED: MIDAZOLAM HCL 2MG/2ML 2ml VIAL (1mg/ml) ONE (15:36)
[2021-03-21] MEDS ORDERED: IODIXANOL 320MG/ML 100ML BTL IV ONE (15:36)
[2021-03-21] MEDS ORDERED: ANGIOMAX 250 MG VIAL IV ONE (15:36)
[2021-03-21] MEDS ORDERED: SODIUM CHL 0.9% 50 ML ONE (15:36)
[2021-03-21] MEDS ORDERED: CLOPIDOGREL 300 MG TAB ONE (16:29)
[2021-03-21 22:00] VITALS: BP 153/79
[2021-03-21] MEDS ORDERED: INSULIN LANTUS (GLARGINE) 1 /0.01ml (100units/ml) SC SCH (22:00)
[2021-03-21] MEDS: ATORVASTATIN 20 MG TAB PO SCH (22:59)
[2021-03-22] MEDS: HYDROmorphone HCL 2 MG/ML VL IV PRN ×3 (04:58→12:55)
[2021-03-22 05:00] VITALS: BP 96/50
[2021-03-22] MEDS: metroNIDAZOLE 500 MG TAB PO SCH ×2 (05:48→14:07)
[2021-03-22] MEDS: ACCU-CHEK COMFORT CURVE STRIP VI SCH ×3 (06:03→17:20)
[2021-03-22] MEDS: InsuLIN REG 1unit/0.01ml Soln (100units/ml) SC SCH ×3 (06:04→17:20)
[2021-03-22 07:04] LABS: Basophils # (auto) 0.1 10 ^3/uL (0-0.2); Basophils % (auto) 0.5 % (0.0-2.0); Eosinophils # (auto) 0.1 10 ^3/uL (0-0.8); Eosinophils % (auto) 0.4 % (0.0-7.0); Hemoglobin 11.1 g/dL (13.5-17.5); Lymphocytes # (auto) 0.9 10 ^3/uL (0.4-5.4); Lymphocytes % (auto) 7.2 % (10.0-50.0); Mean Corpuscular Hemoglobin 31.3 pg (28.0-32.0); Mean Corpuscular Hgb Conc. 34.8 g/dL (32.0-36.0); Mean Corpuscular Volume 90.1 fL (80.0-100.0); Monocytes # (auto) 1.2 10 ^3/uL (0-1.3); Monocytes % (auto) 9.3 % (0.0-12.0); Neutrophils # (auto) 10.8 10 ^3/uL (1.6-8.6); Neutrophils % (auto) 82.6 % (37.0-80.0); Red Blood Cells 3.55 10^6/uL (4.5-5.90); Red Cell Distribution Width 12.5 % (11.8-14.3)
[2021-03-22 07:14] LABS: BUN/Creatinine Ratio 26.3; Calcium 8.3 mg/dL (8.5-10.1); Magnesium 2.1 mg/dL (1.6-2.6); Potassium 4.4 mmol/L (3.5-5.1)
[2021-03-22] MEDS: ONDANSETRON HCL 4 MG/2 ML VIAL IV PRN (08:37)
[2021-03-22] MEDS: ASPirin 81 mg TAB PO SCH (08:38)
[2021-03-22] MEDS: CHOLECALCIFEROL (VITD3) 2,000 UNIT CAP/TAB PO SCH (08:38)
[2021-03-22] MEDS: CARVEDILOL 3.125 MG TAB PO SCH (08:38)
[2021-03-22] MEDS: LISINOPRIL 20 MG TAB PO SCH (08:39)
[2021-03-22] MEDS: Glucerna Carbsteady SHAKE Vanilla 8oz PO SCH ×3 (08:40→18:28)
[2021-03-22] MEDS: DAKINS QUARTER STR 0.125% (NaHypochlorite) 473 ML TOPICAL SOL TOP SCH (08:40)
[2021-03-22 09:00] VITALS: BP 127/63
[2021-03-22] MEDS ORDERED: cefTRIAXone 1GM/50ML D5W 50 ML IV SCH (09:00)
[2021-03-22] MEDS ORDERED: CLOP75TA28 PO (09:19)
[2021-03-22] MEDS ORDERED: CAR3125T PO (09:19)
[2021-03-22] MEDS ORDERED: ATOR20TA50 PO (09:19)
[2021-03-22] MEDS ORDERED: ASPI1CHW15 PO (09:19)
[2021-03-22] MEDS ORDERED: LISI20TA28 PO (09:26)
[2021-03-22] MEDS ORDERED: CHOL20007 PO (09:26)
[2021-03-22] MEDS ORDERED: SACC250C PO (09:26)
[2021-03-22] MEDS ORDERED: METR500T PO (09:26)
[2021-03-22] MEDS ORDERED: INSLANTI SC (09:26)
[2021-03-22] MEDS ORDERED: CARVEDILOL 3.125 MG TAB PO SCH (10:00)
[2021-03-22] MEDS ORDERED: CLOPIDOGREL BISULFATE 75 MG TAB PO SCH (10:00)
[2021-03-22] MEDS ORDERED: ISOSORBIDE MONONITRATE ER 60 MG TAB PO SCH (10:00)
[2021-03-22] MEDS ORDERED: FLORASTOR (S. BOULARDII) 250 MG CAP PO SCH (10:00)
[2021-03-22] MEDS: SODIUM CHLORIDE 0.9% 1,000 ML IV SCH (10:45)
[2021-03-22 12:30] VITALS: BP 115/58
[2021-03-22] MEDS: HYDROcodone-ACET 5/325MG TAB PO PRN (15:12)
[2021-03-22 16:52] VITALS: BP 99/57
[2021-03-22] MEDS ORDERED: INSULIN LANTUS (GLARGINE) 1 /0.01ml (100units/ml) SC SCH (22:00)
== END 2021-03-22 20:07 | DRG 710 ==
LOC: ER 10:19 → TELE 16:02 → TELE-CENTR 20:05
PROVIDERS: ADMIT Nurse Practitioner Acute Care; ATTEND Internal Medicine
PROC: 0Y6N0Z9 Detachment at Left Foot, Partial 1st Ray, Open Approach (ICD-10-PCS; principal; 2021-03-16 11:24)
PROC: 05HA33Z Insertion of Infusion Device into Left Brachial Vein, Percutaneous Approach (ICD-10-PCS; 2021-03-18)
PROC: B54NZZA Ultrasonography of Left Upper Extremity Veins, Guidance (ICD-10-PCS; 2021-03-18)
PROC: B41G1ZZ Fluoroscopy of Left Lower Extremity Arteries using Low Osmolar Contrast (ICD-10-PCS; 2021-03-21)
PROC: B41F1ZZ Fluoroscopy of Right Lower Extremity Arteries using Low Osmolar Contrast (ICD-10-PCS; 2021-03-21)
PROC: 047S3ZZ Dilation of Left Posterior Tibial Artery, Percutaneous Approach (ICD-10-PCS; 2021-03-21)
PROC: 047L3Z1 Dilation of Left Femoral Artery using Drug-Coated Balloon, Percutaneous Approach (ICD-10-PCS; 2021-03-21)
PROC: 04CS3ZZ Extirpation of Matter from Left Posterior Tibial Artery, Percutaneous Approach (ICD-10-PCS; 2021-03-21)
PROC: 04CU3ZZ Extirpation of Matter from Left Peroneal Artery, Percutaneous Approach (ICD-10-PCS; 2021-03-21)
PROC: 3E053GC Introduction of Other Therapeutic Substance into Peripheral Artery, Percutaneous Approach (ICD-10-PCS; 2021-03-21)
DX: A41.9 Sepsis, unspecified organism (principal); A48.0 Gas gangrene; E11.52 Type 2 diabetes mellitus with diabetic peripheral angiopathy with gangrene; E44.0 Moderate protein-calorie malnutrition; E87.1 Hypo-osmolality and hyponatremia; L03.116 Cellulitis of left lower limb; E11.21 Type 2 diabetes mellitus with diabetic nephropathy; E11.69 Type 2 diabetes mellitus with other specified complication; E11.65 Type 2 diabetes mellitus with hyperglycemia; I25.10 Atherosclerotic heart disease of native coronary artery without angina pectoris; E78.5 Hyperlipidemia, unspecified; I10 Essential (primary) hypertension; F12.10 Cannabis abuse, uncomplicated; E87.6 Hypokalemia; E55.9 Vitamin D deficiency, unspecified; Z20.822 Contact with and (suspected) exposure to COVID-19; J44.9 Chronic obstructive pulmonary disease, unspecified; R65.20 Severe sepsis without septic shock; M86.8X7 Other osteomyelitis, ankle and foot; L97.929 Non-pressure chronic ulcer of unspecified part of left lower leg with unspecified severity; Z82.49 Family history of ischemic heart disease and other diseases of the circulatory system; Z89.412 Acquired absence of left great toe; Z89.429 Acquired absence of other toe(s), unspecified side; Z95.1 Presence of aortocoronary bypass graft; Z68.21 Body mass index [BMI] 21.0-21.9, adult; I25.2 Old myocardial infarction
CPT/HCPCS: 34203; 36415; 37224; 37228; 71045; 73700; 75716; 78452; 80048; 80053; 80061; 80202; 82306; 82962; 83036; 83735; 84132; 84443; 85007; 85025; 85027; 85610; 85652; 85730; 86850; 86900; 86901; 87040; 87070; 87075; 87076; 87081; 87205; 87426; 93005; 93017; 93306; 93926; 96365; 96367; 96375; 97110; 97116; 97163; 97530; 99152; 99153; G0378; J0153; J0696; J1815; J2001; J2185; J2250; J2405; J2704; J3490; Q9967

== ENCOUNTER 2021-04-01 20:00 | Emergency (ER) | payer MEDICAID, OTHER ==
[~2021-04-01] VITALS: Ht 167.6 cm; Wt 61.2 kg
[~2021-04-01 20:00] MED LIST: ASPI1CHW15 PO; ATOR20TA50 PO; ATOR40TA52 PO; CAR3125T PO; CHOL20007 PO; CLOP75TA28 PO; INSLANTI SC; ISOS1TAB28 PO; LISI20TA28 PO; METR500T PO; SACC250C PO
[2021-04-01 21:31] LABS: Basophils # (auto) 0 10 ^3/uL (0-0.2); Basophils % (auto) 0.7 % (0.0-2.0); Eosinophils # (auto) 0.2 10 ^3/uL (0-0.8); Eosinophils % (auto) 3.1 % (0.0-7.0); Hemoglobin 11.1 g/dL (13.5-17.5); Lymphocytes # (auto) 1.3 10 ^3/uL (0.4-5.4); Lymphocytes % (auto) 21.4 % (10.0-50.0); Mean Corpuscular Hemoglobin 30.6 pg (28.0-32.0); Mean Corpuscular Hgb Conc. 33.6 g/dL (32.0-36.0); Monocytes # (auto) 0.5 10 ^3/uL (0-1.3); Monocytes % (auto) 8.5 % (0.0-12.0); Neutrophils # (auto) 4.2 10 ^3/uL (1.6-8.6); Neutrophils % (auto) 66.3 % (37.0-80.0); Red Blood Cells 3.62 10^6/uL (4.5-5.90); Red Cell Distribution Width 12.9 % (11.8-14.3); White Blood Cell 6.3 10^3/uL (4.4-10.8)
[2021-04-01 21:42] LABS: Albumin 2.2 g/dL (3.4-5.0); Calcium 8.1 mg/dL (8.5-10.1)
[2021-04-01 21:45] LABS: BUN/Creatinine Ratio 19.4
[2021-04-01 21:48] LABS: Bilirubin, Total 0.1 mg/dL (0.2-1.0); Total Protein 6.7 g/dL (6.4-8.2)
[2021-04-01 23:00] VITALS: BP 144/74
== END 2021-04-02 08:56 | disposition home or self-care (01) ==
LOC: EDBD 20:00 → EDUNIT# 20:00 → ER 20:06
DX: E87.5 Hyperkalemia (principal); D47.3 Essential (hemorrhagic) thrombocythemia; I10 Essential (primary) hypertension; I25.2 Old myocardial infarction; E78.5 Hyperlipidemia, unspecified; E11.9 Type 2 diabetes mellitus without complications; Z95.1 Presence of aortocoronary bypass graft; Z79.82 Long term (current) use of aspirin; Z79.4 Long term (current) use of insulin; Z79.01 Long term (current) use of anticoagulants; Z79.899 Other long term (current) drug therapy
CPT/HCPCS: 36415; 80053; 82962; 85025; 93005

== ENCOUNTER 2021-06-05 20:25 | Inpatient (IN) | payer MEDICAID, OTHER ==
[~2021-06-05] VITALS: Ht 182.9 cm; Wt 68.8 kg
[~2021-06-05 20:25] MED LIST changes: -CHOL20007 PO
[2021-06-05 23:10] LABS: Hematocrit 29.3 % (41.0-53.0); Hemoglobin 9.7 g/dL (13.5-17.5); Mean Corpuscular Hemoglobin 28.8 pg (28.0-32.0); Mean Corpuscular Hgb Conc. 33.2 g/dL (32.0-36.0); Mean Corpuscular Volume 86.8 fL (80.0-100.0); Red Blood Cells 3.38 10^6/uL (4.5-5.90); Red Cell Distribution Width 13.8 % (11.8-14.3)
[2021-06-05] MEDS ORDERED: ONDANSETRON HCL 4 MG/2 ML VIAL IV ONE (23:15)
[2021-06-05] MEDS ORDERED: SODIUM CHLORIDE 0.9% 1,000 ML IV ONE (23:15)
[2021-06-05 23:29] LABS: White Blood Cell 44.2 10^3/uL (4.4-10.8)
[2021-06-05 23:31] LABS: Basophils % (manual) 0 (0.0-2.0); Blast Cells 0; Eosinophils % (manual) 0 (0-7); Metamyelocytes % 0; Myelocytes % 0; Promyelocytes % 0; Reactive Lymphocytes 0
[2021-06-05 23:34] LABS: Albumin 1.5 g/dL (3.4-5.0); BUN/Creatinine Ratio 20.6; Calcium 8.4 mg/dL (8.5-10.1); Magnesium 2.4 mg/dL (1.6-2.6)
[2021-06-05 23:39] LABS: Bilirubin, Total 0.5 mg/dL (0.2-1.0); Total Protein 7.2 g/dL (6.4-8.2)
[2021-06-05 23:46] LABS: Lactic Acid w/Reflex 3.4 mmol/L (0.4-2.0)
[2021-06-06 00:16] LABS: Band Neutrophils % (manual) 23; Lymphocytes % (manual) 1 (10.0-50.0); Monocytes % (manual) 4 (0-12)
[2021-06-06] MEDS ORDERED: DEXTROSE (50%) 50ML SYRG IV PRN ×2 (02:00→17:00)
[2021-06-06] MEDS ORDERED: INSULIN LANTUS (GLARGINE) 1 /0.01ml (100units/ml) SC ONE (02:00)
[2021-06-06] MEDS ORDERED: InsuLIN R (HUMAN) 100 UNITS in SODIUM CHL 0.9% 99 ML IV SCH (02:00)
[2021-06-06] MEDS ORDERED: InsuLIN REG 1unit/0.01ml Soln (100units/ml) ONE (02:34)
[2021-06-06] MEDS: SODIUM CHLORIDE 0.9% 1,000 ML IV SCH ×6 (02:58→16:19)
[2021-06-06] MEDS: ACCU-CHEK COMFORT CURVE STRIP VI SCH ×12 (03:02→23:48)
[2021-06-06 04:11] LABS: BUN/Creatinine Ratio 23.1; Calcium 7.7 mg/dL (8.5-10.1); Magnesium 2.2 mg/dL (1.6-2.6); Potassium 3.8 mmol/L (3.5-5.1)
[2021-06-06] MEDS ORDERED: hydrALAZINE HCL 10 MG TAB PO PRN (04:30)
[2021-06-06] MEDS ORDERED: ACETAMINOPHEN 325 MG TAB PO PRN (04:30)
[2021-06-06] MEDS: D5W/SOD CHLO 0.9% 1,000 ML IV SCH ×3 (05:33→17:25)
[2021-06-06] MEDS ORDERED: SODIUM CHLORIDE 0.9% 1,000 ML IV SCH (06:00)
[2021-06-06 07:54] LABS: Potassium 3.9 mmol/L (3.5-5.1)
[2021-06-06 08:02] LABS: BUN/Creatinine Ratio 24.4; Calcium 7.7 mg/dL (8.5-10.1)
[2021-06-06 08:09] LABS: Phosphorus 5.6 mg/dL (2.5-4.90)
[2021-06-06] MEDS ORDERED: cefTRIAXone 1GM/50ML D5W 50 ML IV SCH (10:00)
[2021-06-06 13:34] LABS: BUN/Creatinine Ratio 26.5; Calcium 7.6 mg/dL (8.5-10.1); Magnesium 2.6 mg/dL (1.6-2.6); Phosphorus 5.3 mg/dL (2.5-4.90); Potassium 4.9 mmol/L (3.5-5.1)
[2021-06-06 15:14] LABS: Hepatitis C Antibody Negative (Negative)
[2021-06-06] MEDS: ONDANSETRON HCL 4 MG/2 ML VIAL IV PRN (15:32)
[2021-06-06 17:37] LABS: Protein, Urine 422.6 mg/dL (0.0-11.9)
[2021-06-06] MEDS: InsuLIN REG 1unit/0.01ml Soln (100units/ml) SC SCH (18:00)
[2021-06-06] MEDS ORDERED: VANCOMYCIN PER PHARMACY 0 MG IV SCH (18:30)
[2021-06-06] MEDS ORDERED: VANCOMYCIN 1GM/250ML 250 ML IV ONE (20:00)
[2021-06-06 20:05] LABS: BUN/Creatinine Ratio 28.2; Calcium 7.6 mg/dL (8.5-10.1); Magnesium 2.4 mg/dL (1.6-2.6); Phosphorus 4.8 mg/dL (2.5-4.90); Potassium 3.9 mmol/L (3.5-5.1)
[2021-06-06] MEDS ORDERED: ERTAPENEM SOD INJ 0.5 GM in SODIUM CHL 0.9% 50 ML IV SCH (21:00)
[2021-06-06] MEDS: HYDROcodone-ACET 5/325MG TAB PO PRN (22:37)
[2021-06-06] MEDS: INSULIN LANTUS (GLARGINE) 1 /0.01ml (100units/ml) SC SCH (22:47)
[2021-06-06] MEDS ORDERED: PIPERACILLIN-TAZOB 2.25GM 50 ML IV ONE (23:30)
[2021-06-07] MEDS: InsuLIN REG 1unit/0.01ml Soln (100units/ml) SC SCH ×4 (00:03→18:00)
[2021-06-07 00:16] VITALS: BP 124/100
[2021-06-07] MEDS: D5W/SOD CHLO 0.9% 1,000 ML IV SCH ×2 (03:36→21:36)
[2021-06-07] MEDS: HYDROcodone-ACET 5/325MG TAB PO PRN (04:31)
[2021-06-07 05:17] VITALS: BP 116/87
[2021-06-07 05:36] LABS: Urine Bacteria FEW /hpf (None Seen); Urine Blood 3+ /uL (Negative); Urine Hyaline Cast FEW /lpf (0 - 2); Urine Specific Gravity 1.018 (1.001-1.035); Urine WBC 50 /hpf (0 - 3); Urine WBC Clumps PRESENT /hpf (None Seen)
[2021-06-07] MEDS: INSULIN LANTUS (GLARGINE) 1 /0.01ml (100units/ml) SC SCH ×2 (06:29→22:41)
[2021-06-07] MEDS: ACCU-CHEK COMFORT CURVE STRIP VI SCH ×3 (06:30→18:04)
[2021-06-07] MEDS: ONDANSETRON HCL 4 MG/2 ML VIAL IV PRN ×2 (08:14→14:32)
[2021-06-07 09:00] VITALS: BP 133/72
[2021-06-07] MEDS: MORPHINE SULFATE INJECTION 2 MG/ML SYRG IM PRN ×2 (09:44→16:47)
[2021-06-07] MEDS ORDERED: ERTAPENEM SOD INJ 0.5 GM in SODIUM CHL 0.9% 50 ML IV SCH (10:00)
[2021-06-07 10:35] LABS: Calcium 7.2 mg/dL (8.5-10.1); Magnesium 2.6 mg/dL (1.6-2.6); Potassium 4.5 mmol/L (3.5-5.1)
[2021-06-07 10:38] LABS: Hematocrit 27.1 % (41.0-53.0); Mean Corpuscular Hemoglobin 28.2 pg (28.0-32.0); Mean Corpuscular Hgb Conc. 33.1 g/dL (32.0-36.0); Mean Corpuscular Volume 85.4 fL (80.0-100.0); Red Blood Cells 3.18 10^6/uL (4.5-5.90)
[2021-06-07 10:44] LABS: BUN/Creatinine Ratio 30.1; CRP High Sensitivity 17.9 mg/dL (< 0.3); Phosphorus 5.3 mg/dL (2.5-4.90)
[2021-06-07 10:52] LABS: White Blood Cell 34.5 10^3/uL (4.4-10.8)
[2021-06-07 10:53] LABS: Basophils % (manual) 0 (0.0-2.0); Blast Cells 0; Eosinophils % (manual) 0 (0-7); Metamyelocytes % 0; Myelocytes % 0; Promyelocytes % 0; Reactive Lymphocytes 0
[2021-06-07] MEDS ORDERED: VANCOMYCIN 1GM/250ML 250 ML IV ONE (12:45)
[2021-06-07 13:00] VITALS: BP 162/80
[2021-06-07 13:07] LABS: Band Neutrophils % (manual) 17; Lymphocytes % (manual) 5 (10.0-50.0); Monocytes % (manual) 4 (0-12)
[2021-06-07] MEDS: DOPamine 1600MCG/ML D5W 250 ML IV SCH (14:04)
[2021-06-07] MEDS: MEROPENEM 500MG IVPB 50 ML IV SCH (14:40)
[2021-06-07 17:00] VITALS: BP 151/73
[2021-06-07] MEDS ORDERED: TPN PER PHARMACY IV NR ×8 (20:00)
[2021-06-07 22:00] VITALS: BP 129/65
[2021-06-08] MEDS: InsuLIN REG 1unit/0.01ml Soln (100units/ml) SC SCH ×4 (00:26→19:00)
[2021-06-08] MEDS: ACCU-CHEK COMFORT CURVE STRIP VI SCH ×5 (00:26→23:55)
[2021-06-08] MEDS: MEROPENEM 500MG IVPB 50 ML IV SCH ×2 (02:25→16:48)
[2021-06-08 05:00] VITALS: BP 133/80
[2021-06-08] MEDS: INSULIN LANTUS (GLARGINE) 1 /0.01ml (100units/ml) SC SCH ×2 (07:00→22:16)
[2021-06-08] MEDS ORDERED: MIDAZOLAM HCL 2MG/2ML 2ml VIAL (1mg/ml) ONE (07:06)
[2021-06-08] MEDS ORDERED: KETAMINE HCL 10 ML ONE (07:06)
[2021-06-08] MEDS ORDERED: fentaNYL CITRATE 100 MCG/2 ML VL ONE (07:06)
[2021-06-08] MEDS ORDERED: PROPOFOL 10 MG/ML 20 ML IV ONE (07:06)
[2021-06-08] MEDS ORDERED: ONDANSETRON HCL 4 MG/2 ML VIAL ONE (07:06)
[2021-06-08] MEDS ORDERED: SODIUM CHLORIDE LOCK 10 ML ONE (07:06)
[2021-06-08] MEDS ORDERED: LIDOCAINE 1% HCL (LOCAL ANESTH.) INJ 20ML MDV ONE (07:09)
[2021-06-08] MEDS ORDERED: BUPIVACAINE 0.5% P/F INJ 10 ML VIAL ONE (07:10)
[2021-06-08] MEDS ORDERED: ACCU-CHEK COMFORT CURVE STRIP VI ONE (07:45)
[2021-06-08] MEDS ORDERED: METOCLOPRAMIDE HCL 5MG/ml INJ 2ml VIAL IV PRN (07:45)
[2021-06-08] MEDS ORDERED: MORPHINE SULFATE 4 MG/ML SYR/VIAL IV PRN (07:45)
[2021-06-08] MEDS ORDERED: ceFAZolin 1GM/50ML 100 ML IV ONE (07:55)
[2021-06-08] MEDS ORDERED: ceFAZolin 1GM VL ONE (08:33)
[2021-06-08] MEDS ORDERED: DAKINS HALF STR 0.25% (NaHypochlorite) 473 ML TOPICAL SOL TOP ONE (09:00)
[2021-06-08] MEDS: HYDROmorphone HCL 2 MG/ML VL IV PRN ×2 (09:53→10:03)
[2021-06-08 11:56] LABS: Eosinophils # (auto) 0 10 ^3/uL (0-0.8); Lymphocytes # (auto) 0.3 10 ^3/uL (0.4-5.4); Monocytes # (auto) 0.3 10 ^3/uL (0-1.3); Monocytes % (auto) 1.7 % (0.0-12.0)
[2021-06-08 12:00] LABS: Basophils # (auto) 0.1 10 ^3/uL (0-0.2); Basophils % (auto) 0.3 % (0.0-2.0); Hematocrit 24.2 % (41.0-53.0); Hemoglobin 8.2 g/dL (13.5-17.5); Lymphocytes % (auto) 1.6 % (10.0-50.0); Mean Corpuscular Hemoglobin 29.4 pg (28.0-32.0); Mean Corpuscular Volume 86.4 fL (80.0-100.0); Neutrophils % (auto) 96.4 % (37.0-80.0); White Blood Cell 19.7 10^3/uL (4.4-10.8)
[2021-06-08 12:14] LABS: BUN/Creatinine Ratio 32.8; Calcium 7.2 mg/dL (8.5-10.1); Potassium 4.1 mmol/L (3.5-5.1)
[2021-06-08 12:17] LABS: Bilirubin, Total 0.8 mg/dL (0.2-1.0); Total Protein 4.6 g/dL (6.4-8.2)
[2021-06-08] MEDS: MORPHINE SULFATE INJECTION 2 MG/ML SYRG IM PRN ×2 (12:18→19:03)
[2021-06-08 12:27] LABS: Phosphorus 5.9 mg/dL (2.5-4.90)
[2021-06-08 13:00] VITALS: BP 124/62
[2021-06-08] MEDS ORDERED: VANCOMYCIN 1GM/250ML 250 ML IV ONE (13:30)
[2021-06-08 14:41] LABS: INR 1.02 (0.9-1.15)
[2021-06-08 16:38] VITALS: BP 122/65
[2021-06-08] MEDS: FUROSEMIDE 100 MG/10ML VIAL IV SCH (18:58)
[2021-06-08 20:00] VITALS: BP 121/68
[2021-06-08] MEDS: DOPamine 1600MCG/ML D5W 250 ML IV SCH (20:00)
[2021-06-08 20:34] LABS: Hematocrit 22.5 % (41.0-53.0); Hemoglobin 7.4 g/dL (13.5-17.5)
[2021-06-08 22:00] VITALS: BP 121/68
[2021-06-09] MEDS: InsuLIN REG 1unit/0.01ml Soln (100units/ml) SC SCH ×4 (00:01→17:37)
[2021-06-09] MEDS: MEROPENEM 500MG IVPB 50 ML IV SCH ×2 (02:07→14:33)
[2021-06-09 05:00] VITALS: BP 107/57
[2021-06-09] MEDS: MORPHINE SULFATE INJECTION 2 MG/ML SYRG IM PRN (05:02)
[2021-06-09] MEDS: ONDANSETRON HCL 4 MG/2 ML VIAL IV PRN (05:10)
[2021-06-09 05:20] LABS: Basophils # (auto) 0.1 10 ^3/uL (0-0.2); Basophils % (auto) 0.3 % (0.0-2.0); Eosinophils # (auto) 0 10 ^3/uL (0-0.8); Eosinophils % (auto) 0.1 % (0.0-7.0); Lymphocytes # (auto) 0.4 10 ^3/uL (0.4-5.4); Monocytes # (auto) 1.2 10 ^3/uL (0-1.3)
[2021-06-09 05:23] LABS: Hematocrit 22.5 % (41.0-53.0); Hemoglobin 7.6 g/dL (13.5-17.5); Lymphocytes % (auto) 1.6 % (10.0-50.0); Mean Corpuscular Hgb Conc. 33.7 g/dL (32.0-36.0); Monocytes % (auto) 5.1 % (0.0-12.0); Neutrophils # (auto) 21.6 10 ^3/uL (1.6-8.6); Neutrophils % (auto) 92.9 % (37.0-80.0); Red Blood Cells 2.62 10^6/uL (4.5-5.90); Red Cell Distribution Width 14.3 % (11.8-14.3); White Blood Cell 23.2 10^3/uL (4.4-10.8)
[2021-06-09 05:42] LABS: Albumin 1.1 g/dL (3.4-5.0); Magnesium 2.6 mg/dL (1.6-2.6); Potassium 4.8 mmol/L (3.5-5.1)
[2021-06-09 05:47] LABS: BUN/Creatinine Ratio 34.6; Bilirubin, Total 0.6 mg/dL (0.2-1.0); INR 0.99 (0.9-1.15); Partial Thromboplastin Time 32.3 sec (23.6-33.0); Phosphorus 6.2 mg/dL (2.5-4.90); Total Protein 4.9 g/dL (6.4-8.2)
[2021-06-09] MEDS: ACCU-CHEK COMFORT CURVE STRIP VI SCH ×3 (06:40→17:32)
[2021-06-09] MEDS: INSULIN LANTUS (GLARGINE) 1 /0.01ml (100units/ml) SC SCH ×2 (06:42→21:37)
[2021-06-09 09:00] VITALS: BP 113/64
[2021-06-09] MEDS: DOPamine 1600MCG/ML D5W 250 ML IV SCH (10:15)
[2021-06-09] MEDS: SODIUM CHLORIDE 0.9% 1,000 ML IV SCH ×3 (10:25→22:31)
[2021-06-09] MEDS: CALCIUM ACETATE 667 MG CAP PO SCH ×2 (11:45→17:38)
[2021-06-09] MEDS: FUROSEMIDE 100 MG/10ML VIAL IV SCH (12:12)
[2021-06-09 13:00] VITALS: BP 144/76
[2021-06-09 13:27] LABS: Calcium 7.1 mg/dL (8.5-10.1); Magnesium 2.3 mg/dL (1.6-2.6); Phosphorus 5.7 mg/dL (2.5-4.90); Potassium 4.2 mmol/L (3.5-5.1)
[2021-06-09] MEDS ORDERED: LIDOCAINE 1% (LOCAL ANESTH.) PF 5ml SDV ID ONE (16:45)
[2021-06-09 17:00] VITALS: BP 152/70
[2021-06-09 20:00] VITALS: BP 132/77
[2021-06-09] MEDS: SODIUM CHLOR 0.9% PF (SALINE LOCK) 10ML VIAL/SYR IV SCH (21:31)
[2021-06-09 21:40] LABS: BUN/Creatinine Ratio 36.2; Calcium 6.9 mg/dL (8.5-10.1); Magnesium 2.4 mg/dL (1.6-2.6); Phosphorus 5.4 mg/dL (2.5-4.90); Potassium 4.4 mmol/L (3.5-5.1)
[2021-06-09 22:00] VITALS: BP 132/77
[2021-06-10] VITALS (7 sets, daily range): BP systolic 86–136; BP diastolic 56–95
[2021-06-10] MEDS: ACCU-CHEK COMFORT CURVE STRIP VI SCH ×3 (00:26→12:00)
[2021-06-10] MEDS: InsuLIN REG 1unit/0.01ml Soln (100units/ml) SC SCH ×3 (00:38→12:00)
[2021-06-10] MEDS: MORPHINE SULFATE INJECTION 2 MG/ML SYRG IM PRN ×2 (00:43→09:10)
[2021-06-10 00:50] LABS: Calcium 6.9 mg/dL (8.5-10.1); Magnesium 2.1 mg/dL (1.6-2.6); Potassium 4.4 mmol/L (3.5-5.1)
[2021-06-10] MEDS: MEROPENEM 500MG IVPB 50 ML IV SCH (02:20)
[2021-06-10 05:50] LABS: Potassium 4.9 mmol/L (3.5-5.1)
[2021-06-10 05:54] LABS: BUN/Creatinine Ratio 36.6; Phosphorus 5.2 mg/dL (2.5-4.90)
[2021-06-10] MEDS: INSULIN LANTUS (GLARGINE) 1 /0.01ml (100units/ml) SC SCH (06:41)
[2021-06-10] MEDS ORDERED: DAKINS QUARTER STR 0.125% (NaHypochlorite) 473 ML TOPICAL SOL TOP ONE (08:30)
[2021-06-10] MEDS: FUROSEMIDE 100 MG/10ML VIAL IV SCH (09:10)
[2021-06-10] MEDS: CALCIUM ACETATE 667 MG CAP PO SCH ×2 (09:11→11:28)
[2021-06-10] MEDS: SODIUM CHLOR 0.9% PF (SALINE LOCK) 10ML VIAL/SYR IV SCH (10:00)
[2021-06-10] MEDS ORDERED: VANCOMYCIN 750mg/250ml 250 ML IV ONE (10:00)
[2021-06-10] MEDS ORDERED: SODIUM CHLORIDE 0.9% 1,000 ML IV SCH (11:00)
[2021-06-10] MEDS: HYDROcodone-ACET 5/325MG TAB PO PRN (11:29)
[2021-06-10 12:45] LABS: BUN/Creatinine Ratio 35.7; Calcium 7.1 mg/dL (8.5-10.1); Magnesium 1.9 mg/dL (1.6-2.6); Phosphorus 4.9 mg/dL (2.5-4.90); Potassium 4.9 mmol/L (3.5-5.1)
[2021-06-10] MEDS: DOPamine 1600MCG/ML D5W 250 ML IV SCH (12:47)
[2021-06-10] MEDS ORDERED: AMPICILLIN & SULBACTAM SODIUM 3 GM in SODIUM CHL 0.9% 100 ML IV SCH (13:00)
== END 2021-06-10 18:00 | DRG 710 ==
LOC: ER 20:27 → TELE 06-06 04:22 → TELE-CENTR 06-06 20:59
PROVIDERS: ADMIT Nurse Practitioner Family; ATTEND Nurse Practitioner Family
PROC: 05HB33Z Insertion of Infusion Device into Right Basilic Vein, Percutaneous Approach (ICD-10-PCS; principal; 2021-06-06)
PROC: B54MZZA Ultrasonography of Right Upper Extremity Veins, Guidance (ICD-10-PCS; 2021-06-06)
PROC: 0Y6N0Z0 Detachment at Left Foot, Complete, Open Approach (ICD-10-PCS; 2021-06-08)
PROC: 0LBP0ZZ Excision of Left Lower Leg Tendon, Open Approach (ICD-10-PCS; 2021-06-08)
PROC: 02HV33Z Insertion of Infusion Device into Superior Vena Cava, Percutaneous Approach (ICD-10-PCS; 2021-06-09)
DX: A41.01 Sepsis due to Methicillin susceptible Staphylococcus aureus (principal); M72.6 Necrotizing fasciitis; N17.9 Acute kidney failure, unspecified; E11.10 Type 2 diabetes mellitus with ketoacidosis without coma; E83.39 Other disorders of phosphorus metabolism; I50.9 Heart failure, unspecified; I13.0 Hypertensive heart and chronic kidney disease with heart failure and stage 1 through stage 4 chronic kidney disease, or unspecified chronic kidney disease; L03.116 Cellulitis of left lower limb; M86.8X7 Other osteomyelitis, ankle and foot; E86.0 Dehydration; D75.839 Thrombocytosis, unspecified; E87.5 Hyperkalemia; Z20.822 Contact with and (suspected) exposure to COVID-19; I25.10 Atherosclerotic heart disease of native coronary artery without angina pectoris; E11.65 Type 2 diabetes mellitus with hyperglycemia; E11.22 Type 2 diabetes mellitus with diabetic chronic kidney disease; N18.30 Chronic kidney disease, stage 3 unspecified; Z79.4 Long term (current) use of insulin; Z79.02 Long term (current) use of antithrombotics/antiplatelets; Z79.899 Other long term (current) drug therapy; Z82.49 Family history of ischemic heart disease and other diseases of the circulatory system; Z83.3 Family history of diabetes mellitus; Z95.1 Presence of aortocoronary bypass graft; I25.2 Old myocardial infarction
CPT/HCPCS: 36415; 36569; 71045; 73620; 73718; 74176; 76705; 76775; 80048; 80053; 80061; 80202; 81001; 82010; 82306; 82570; 82962; 83036; 83605; 83615; 83735; 83880; 83930; 83970; 84100; 84156; 84300; 84484; 85007; 85014; 85018; 85025; 85027; 85610; 85652; 85730; 86141; 86803; 86850; 86900; 86901; 87040; 87070; 87075; 87077; 87186; 87205; 87340; 87426; 93005; 93306; 93971; 96361; 96365; 96366; 96367; 96372; 96375; 96376; 97163; G0378; J0690; J0696; J1335; J1815; J2001; J2185; J2250; J2405; J2543; J2704; J3490